=== PATIENT | male | born 1945 | race Caucasian/White ===

== ENCOUNTER 2019-05-13 16:19 | Inpatient (IN) | payer OTHER, MEDICAID ==
[~2019-05-13] VITALS: Ht 162.6 cm; Wt 71.7 kg
--- NOTE | 2019-05-13 21:00 | NUR ---
Direct Admit Received pt as a Direct Admit from [facility]. Diagnosis: Dysphagia, Dehydration, Possible UTI. Pt AAOx3, VSS, no s/s distress noted. Pt ambulates to bathroom with steady gait. Patient oriented to hospital routine, call light, toileting and safety-patient verbalized understanding. Bed low, locked, siderails up x3. Call light within reach. To monitor.
[2019-05-13] MEDS ORDERED: AMLO5TAB4 PO (21:10)
[2019-05-13] MEDS ORDERED: LISI-600 PO (21:10)
[2019-05-13] MEDS ORDERED: SPIR25TA6 PO (21:10)
[2019-05-13] MEDS ORDERED: LOVA20TA2 PO (21:10)
[2019-05-13] MEDS ORDERED: ASPI-862 PO (21:10)
[2019-05-13 21:44] LABS: RED BLOOD CELL COUNT(AUTO) 4.06 MIL/uL (4.2-6.2); WHITE BLOOD COUNT (AUTO) 10.6 K/uL (4.8-10.8)
[2019-05-13 21:45] LABS: BASOPHILS % (AUTO) 0.7 % (0.0-2.0); HEMATOCRIT 34.9 % (36-54); LYMPHOCYTES # (AUTO) 2.4 K/uL (1.0-5.5); LYMPHOCYTES % (AUTO) 22.4 % (20.5-51.5); MEAN CORPUSCULAR HEMOGLOBIN 29 pg (27-31); MEAN CORPUSCULAR HGB CONC 34 % (32-36); MEAN CORPUSCULAR VOLUME 86 fL (79.0-98.0); MONOCYTES % (AUTO) 10.9 % (1.7-9.3); NEUTROPHILS # (AUTO) 6.5 K/uL (1.8-7.7); PLATELET COUNT (AUTO) 221 K/uL (130-430); RED CELL DISTRIBUTION WIDTH 14.3 % (9.0-15.0)
[2019-05-13 21:46] LABS: BASOPHILS # (AUTO) 0.1 K/uL (0.0-0.2); EOSINOPHILS # (AUTO) 0.4 K/uL (0.0-0.4); MONOCYTES # (AUTO) 1.1 K/uL (0.0-1.0)
[2019-05-13 22:01] LABS: ANION GAP 9 (5-15); CALCIUM 8.9 mg/dL (8.4-11.0); CHLORIDE 107 mmol/L (98-107); CREATININE 1.68 mg/dL (0.55-1.30); GLUCOSE 103 mg/dL (70-99); POTASSIUM 4.6 mmol/L (3.5-5.1); SODIUM SERUM 139 mmol/L (136-145); UREA NITROGEN, BLOOD 44 mg/dL (8-21)
[2019-05-13 22:08] LABS: ALANINE AMINOTRANSFERASE 17 U/L (12-78); ALBUMIN 3.7 g/dL (3.4-4.8); ASPARTATE AMINOTRANSFERASE 14 U/L (10-37); TOTAL BILIRUBIN 0.3 mg/dL (0.0-1.0)
--- NOTE | 2019-05-13 22:40 | NUR ---
Urine specimen collected Pt voided in bathroom and sent to lab for UA and culture.
[2019-05-13 22:49] LABS: BILIRUBIN,URINE NEGATIVE (NEGATIVE); BLOOD, URINE NEGATIVE (NEGATIVE); CLARITY/URINE CLEAR (CLEAR); COLOR,URINE YELLOW (YELLOW); GLUCOSE,URINE NEGATIVE (NEGATIVE); KETONES,URINE NEGATIVE (NEGATIVE); LEUKOCYTE ESTERASE ,URINE NEGATIVE (NEGATIVE); NITRITE, URINE NEGATIVE (NEGATIVE); PH,URINE 5.5 (5.0-8.0); PROTEIN URINE NEGATIVE (NEGATIVE)
[2019-05-13 22:50] LABS: UROBILINOGEN,URINE 0.2 (0.2-1.0)
[2019-05-13 22:51] VITALS: BP_SYST 101
--- NOTE | 2019-05-14 00:32 | NUR ---
IV insertion IV start per AN R. hand 22G x 2 attempts, good blood return and flushes well with 10ml of NS. Pt tolerated well. IVF administered at ordered rate. Will continue to monitor.
[2019-05-14] MEDS: D5/0.45 NS 1,000 ML IV SCH ×2 (00:45→11:14)
[2019-05-14 01:31] VITALS: BP_SYST 111
--- NOTE | 2019-05-14 02:16 | NUR ---
Swallow Eval called Called and left a message for Nidia regarding swallow eval, ordered by Dr. Lorenz
--- NOTE | 2019-05-14 02:30 | NUR ---
Rounds Pt asleep, no s/s distress noted. IVF infusing at ordered rate R. hand no s/s infiltration. Call light within reach. Bed low, locked, siderails up x2. To monitor.
--- NOTE | 2019-05-14 05:30 | NUR ---
Closing notes Pt asleep, respirations even and unlabored. IVF infusing at ordered rate R. hand no s/s infiltration. Call light within reach. Bed low, locked, side rails up x2. To monitor.
--- NOTE | 2019-05-14 07:44 | NUR ---
INITIAL NOTE BEDSIDE SBAR REPORT RECEIVED BY PROCESS IMPROVEMENT CONSULTANT RN. PT RESTING IN BED, BREATHING EVEN AND UNLABORED, NO ACUTE DISTRESS NOTED. EDUCATED PT ON SAFETY AND USE OF BED ALARM, PT VERBALIZED UNDERSTANDING, REFUSING BED ALARM. CALL LIGHT WITHIN REACH, BED IN LOW AND LOCKED POSITION.
[2019-05-14 08:00] VITALS: BP_SYST 106
--- NOTE | 2019-05-14 09:30 | NUR ---
RN ROUNDS PT RESTING IN BED, NO ACUTE DISTRESS NOTED, BREATHING EVEN AND UNLABORED.
--- NOTE | 2019-05-14 11:30 | NUR ---
RN ROUNDS PT RESTING IN BED WATCHING TELEVISION. PT DENIES ANY DISCOMFORT AT THIS TIME.
[2019-05-14 12:45] VITALS: BP_SYST 107
--- NOTE | 2019-05-14 13:30 | NUR ---
RN ROUNDS PT RESTING, BREATHING EVEN AND UNLABORED, NO ACUTE DISTRESS NOTED.
--- NOTE | 2019-05-14 14:36 | NUR ---
FRANK LARKIN CALLED CALLED AND LEFT MESSAGE FOR [facility]. AWAITING RETURN CALL.
--- NOTE | 2019-05-14 14:50 | NUR ---
SWALLOW EVALUATION [facility] AT [facility] PERFORMING SWALLOW EVALUATION. Addendum: 05/14/19 at 1459 by Kiley Valero RN PT TOLERATING WELL.
--- NOTE | 2019-05-14 15:00 | NUR ---
S.T. SWALLOW EVAL SWALLOW EVAL COMPLETED. PT PRESENTS W/ FUNCTIONAL OROPHARYNGEAL SWALLOW W/ NO S/S OF ASPIRATION. REC: CONTINUE CURRENT [facility] SOFT CHOPPED DIET. THIN LIQUIDS OK. NURSE MAX NOTIFIED. G8996 CI G8997 CI G8998 CI NOMS LEVEL 6
--- NOTE | 2019-05-14 15:25 | NUR ---
RN ROUNDS PATIENT AWAKE, DENIES ANY PAIN OR DISCOMFORT AT THIS TIME, EMPTIED URINAL 200C, URINE CLEAR AND YELLOW.
[2019-05-14 16:58] VITALS: BP_SYST 118
--- NOTE | 2019-05-14 17:15 | NUR ---
RN ROUNDS PT RESTING IN BED. PT AWAKE. DENIES ANY DISCOMFORT AT THIS TIME.
--- NOTE | 2019-05-14 19:22 | NUR ---
MD ROUNDS DR. DODD AT BEDSIDE EXAMINING PATIENT. INFORMED MD OF ELEVATED BUN 44, CRIT 1.68 NEED FOR DVT PROPHYLAXIS, AND MED REC TO BE DONE. NO NEW ORDERS GIVEN.
--- NOTE | 2019-05-14 19:26 | NUR ---
CLOSING NOTE BEDSIDE SBAR REPORT GIVEN TO RECEIVING RN. PT AWAKE, DENIES ANY DISCOMFORT AT THIS TIME. IVF INFUSING WELL. CALL LIGHT WITHIN REACH BED IN LOW AND LOCKED POSITION WITH BED ALARM ON. PT CARE ENDORSED TO HAT BRIM CURLER NURSE.
--- NOTE | 2019-05-14 19:26 | NUR ---
OPENING NOTES Pt and endorsement received from day shift nurse. Pt is awake, alert, oriented and lying in bed. Pt on IVF with D5,0.45NS at 75ml/hr and infusing well on right hand G22. No complains of pain or discomfort at this time. No signs of acute distress or SOB noted. Encouraged to use call light when needed. Safety precautions in place with 3 side rails up, wheels locked, bed alarm on and in lowest level. Call light with pt. Will continue to monitor.
[2019-05-14 20:21] VITALS: BP_SYST 108
[2019-05-14] MEDS: ENOXAPARIN SODIUM 30 MG/0.3 ML SYRINGE SUBCUT SCH (20:25)
--- NOTE | 2019-05-14 20:25 | NUR ---
MED PASS Due med given and pt tolerated well. No complains of pain and no signs of acute distress noted. IVF infusing well. Safety precautions in place and call light with pt. Will continue to monitor.
--- NOTE | 2019-05-14 23:20 | NUR ---
ROUNDS Pt is resting in bed with both eyes closed, with visible chest rise and fall with non-labored breathing noted. IVF infusing well. No complains of pain and no signs of acute distress noted. Safety precautions in place and call light with pt. Will continue to monitor.
[2019-05-15] MEDS: D5/0.45 NS 1,000 ML IV SCH ×2 (01:09→13:27)
[2019-05-15 02:00] VITALS: BP_SYST 103
--- NOTE | 2019-05-15 03:04 | NUR ---
ROUNDS Pt is resting in bed with both eyes closed, with visible chest rise and fall with non-labored breathing noted. Pt is easily arousable. No signs of acute distress noted. IVF infusing well. No needs at this time. Safety precautions in place and call light with pt. Will continue to monitor.
[2019-05-15 06:37] LABS: BASOPHILS # (AUTO) 0.1 K/uL (0.0-0.2); BASOPHILS % (AUTO) 0.7 % (0.0-2.0); EOSINOPHILS # (AUTO) 0.4 K/uL (0.0-0.4); EOSINOPHILS % (AUTO) 5.2 % (0.0-4.0); HEMATOCRIT 34.9 % (36-54); HEMOGLOBIN 11.7 g/dL (14.0-18.0); LYMPHOCYTES # (AUTO) 2.6 K/uL (1.0-5.5); LYMPHOCYTES % (AUTO) 30.3 % (20.5-51.5); MEAN CORPUSCULAR HEMOGLOBIN 29 pg (27-31); MEAN CORPUSCULAR HGB CONC 34 % (32-36); MEAN CORPUSCULAR VOLUME 87 fL (79.0-98.0); MONOCYTES # (AUTO) 0.9 K/uL (0.0-1.0); MONOCYTES % (AUTO) 10.2 % (1.7-9.3); NEUTROPHILS # (AUTO) 4.6 K/uL (1.8-7.7); NEUTROPHILS % (AUTO) 53.6 % (40.0-70.0); PLATELET COUNT (AUTO) 214 K/uL (130-430); RED BLOOD CELL COUNT(AUTO) 4.02 MIL/uL (4.2-6.2); RED CELL DISTRIBUTION WIDTH 14.1 % (9.0-15.0); WHITE BLOOD COUNT (AUTO) 8.6 K/uL (4.8-10.8)
--- NOTE | 2019-05-15 06:40 | NUR ---
CLOSING NOTES Pt is resting in bed with both eyes closed, with visible chest rise and fall with non-labored breathing noted. IVF patent and infusing well. No complains of pain or discomfort at this time. No signs of acute distress or SOB noted. All needs attended throughout the shift. Safety precautions maintained with 3 side rails up, wheels locked, bed alarm on and in lowest level. Call light with pt. Will endorse to day shift nurse.
[2019-05-15 06:46] LABS: ANION GAP 7 (5-15); CALCIUM 8.4 mg/dL (8.4-11.0); CHLORIDE 108 mmol/L (98-107); CREATININE 1.33 mg/dL (0.55-1.30); GLUCOSE 93 mg/dL (70-99); POTASSIUM 4.3 mmol/L (3.5-5.1); SODIUM SERUM 139 mmol/L (136-145); UREA NITROGEN, BLOOD 26 mg/dL (8-21)
--- NOTE | 2019-05-15 07:21 | NUR ---
Opening Note received bedside SBAR report from rn shift mgr RN, patient resting in bed, respirations even and unlabored on room air, no acute distress noted, room close to nurses station, educated patient on use of call light and asked to call for assistance, patient verbalized understanding, call light in reach, bed in low and locked position, bed alarm on.
[2019-05-15] MEDS: ASPIRIN 325 MG TABLET (ECOTRIN) PO SCH (07:55)
[2019-05-15 08:00] VITALS: BP_SYST 115
--- NOTE | 2019-05-15 09:55 | NUR ---
RN Rounds patient resting in bed, respirations even and unlabored on room air, patient denies any pain, no acute distress noted.
--- NOTE | 2019-05-15 11:45 | NUR ---
RN Rounds patient resting in bed, respirations even and unlabored on room air, patient denies any pain, no acute distress noted.
[2019-05-15 12:30] VITALS: BP_SYST 121
--- NOTE | 2019-05-15 13:43 | NUR ---
RN Rounds patient resting in bed watching TV, patient denies any pain, IV fluid infusing well, no redness or swelling noted at IV site.
--- NOTE | 2019-05-15 15:22 | NUR ---
RN Rounds patient resting in bed watching TV, respirations even and unlabored on room air, no acute distress noted, patient denies any pain.
[2019-05-15 16:25] VITALS: BP_SYST 130
[2019-05-15] MEDS: ATORVASTATIN 10 MG TABLET PO SCH (17:30)
--- NOTE | 2019-05-15 17:35 | NUR ---
RN Rounds patient sitting up in bed eating dinner, tolerating well, patient denies any pain or nausea.
--- NOTE | 2019-05-15 19:21 | NUR ---
Closing Note bedside SBAR report given to receiving RN, patient resting in bed, respirations even and unlabored on room air, patient denies any pain, no acute distress noted, room close to nurses station, educated patient on use of call light and asked to call for assistance, patient verbalized understanding, call light in reach, bed in low and locked position, bed alarm on, care endorsed to veterinary surgery technician RN.
[2019-05-15 21:57] VITALS: BP_SYST 141
[2019-05-15] MEDS: ENOXAPARIN SODIUM 30 MG/0.3 ML SYRINGE SUBCUT SCH (22:00)
[2019-05-16 00:38] VITALS: BP_SYST 115
[2019-05-16] MEDS: D5/0.45 NS 1,000 ML IV SCH ×2 (01:59→16:10)
--- NOTE | 2019-05-16 03:32 | NUR ---
ROUNDS Pt is resting in bed with both eyes closed, with visible chest rise and fall with non-labored breathing noted. Pt is easily arousable. IVF infusing well. No signs of acute distress noted. No needs at this time. Safety precautions in place and call light with pt. Will continue to monitor.
[2019-05-16 07:43] LABS: ANION GAP 6 (5-15); CHLORIDE 108 mmol/L (98-107); CREATININE 1.15 mg/dL (0.55-1.30); GLUCOSE 97 mg/dL (70-99); POTASSIUM 4.1 mmol/L (3.5-5.1); SODIUM SERUM 139 mmol/L (136-145); UREA NITROGEN, BLOOD 18 mg/dL (8-21)
[2019-05-16 07:55] LABS: CALCIUM 8.1 mg/dL (8.4-11.0)
[2019-05-16 08:00] VITALS: BP_SYST 92
--- NOTE | 2019-05-16 08:00 | NUR ---
NOTE Pt sitting up in bed eating his breakfast at this time. IV in right hand intact and patent infusing IVF's well No SOB/resp distress or pain/discomfort noted at this time. No needs noted. Pt next to nurses' station for close observation for needs and care. Call light within reach.
[2019-05-16] MEDS: ASPIRIN 325 MG TABLET (ECOTRIN) PO SCH (08:24)
--- NOTE | 2019-05-16 11:45 | NUR ---
Note Pt's daughter in law (Geovanna) called at 1045am, to inquiry about pt's status. Pt agreed to have RN given information to Geovanna. Pt's IV on the floor. Pt states he is not sure how the IV came off. New IV to be inserted shortly. Pt went back to sleep at this time. Call light within reach.
--- NOTE | 2019-05-16 12:00 | NUR ---
Discharge Planning: DCP faxed pt referral to [facility] ([phone] p [phone]) DCP to follow up Addendum: 05/16/19 at 1552 by Sera Cespedes [facility] ([phone] p [phone]) Rm 114B, [facility] ([phone]) 6:00pm P/U. Nurse made aware patient packet taken to nurse station.
[2019-05-16 12:42] VITALS: BP_SYST 142
--- NOTE | 2019-05-16 15:00 | NUR ---
Note Pt has new IV in left hand 22g' and IVF's infusing well at this time. No needs noted at this time. Call light within reach.
--- NOTE | 2019-05-16 15:08 | NUR ---
Dietitian Recommendations * Recommend continuing mechanical soft diet [address] Please refer to Nutrition Assessment for details. Addendum: 05/16/19 at [address] Amended: Links added.
--- NOTE | 2019-05-16 16:00 | NUR ---
Note Called Dr Lorenz's office to notify MD that pt has bed in [facility]. Spoke to Daisy.
[2019-05-16 16:20] VITALS: BP_SYST 127
--- NOTE | 2019-05-16 16:28 | NUR ---
Note [phone]. Room 114B
--- NOTE | 2019-05-16 17:00 | NUR ---
Note Pt dressed himself with street clothes with assist with RN. Pt's IV was dc'd on left hand - site benign. No swelling/redness/bleeding/drainage noted at this time. Pt was checked on q1' and PRN all shift for needs and care. No SOB/resp distress or pain/discomfort noted all shift. Pt stable and call light within reach.
[2019-05-16] MEDS: ATORVASTATIN 10 MG TABLET PO SCH (17:32)
[2019-05-16 17:40] VITALS: BP_SYST 127
--- NOTE | 2019-05-16 17:55 | NUR ---
Note Pt off the floor via gurnelsy to [facility] in [place]. Pt's discharge packet given to EMT to [facility] for continuation of care. Pt stable. All belongings were taken by pt on discharge. No needs noted at this time.
== END 2019-05-16 17:55 | DRG 70 ==
LOC: SMU 20:47
PROVIDERS: ADMIT Family Medicine; ATTEND Family Medicine
DX: G93.41 Metabolic encephalopathy (principal); N17.0 Acute kidney failure with tubular necrosis; E86.0 Dehydration; D64.9 Anemia, unspecified; M19.90 Unspecified osteoarthritis, unspecified site; E78.5 Hyperlipidemia, unspecified; I10 Essential (primary) hypertension; Z79.899 Other long term (current) drug therapy
CPT/HCPCS: 36415; 80048; 80053; 81003; 83735-TC; 85025; 87086; 92610-GN; J1650